=== PATIENT | female | born 1945 | race Caucasian/White ===

== ENCOUNTER → 2016-11-01 | Outpatient (CLI) | payer OTHER, MEDICARE ==
--- NOTE | 2016-11-01 14:38 | DX ---
Chest, Two Views November 01, 2016, at 1247 Hours History: Cough, R05. Previous left breast carcinoma. Comparison: April 2014. Findings: Cardiac silhouette is within normal range. No pneumonia, congestive heart failure, pleura l effusion, or pneumothorax. Clips in the left breast and axillary region. No suspicious pulmonary no dules. Impressions 1. No acute pulmonary disease. 2. Consider CT chest imaging if there is continued clinical concern.
== END ==
LOC: BMCIMAGING 12:49
PROVIDERS: ATTEND Internal Medicine
DX: R05 Cough (principal); Z85.3 Personal history of malignant neoplasm of breast

== ENCOUNTER → 2016-12-10 | Outpatient (CLI) | payer OTHER, MEDICARE | LOC: FIMAGING 13:57 | PROVIDERS: ATTEND Internal Medicine Interventional Cardiology | DX: Z13.6 Encounter for screening for cardiovascular disorders (principal); E78.5 Hyperlipidemia, unspecified ==

== ENCOUNTER → 2017-01-13 | Outpatient (CLI) | payer OTHER, MEDICARE | LOC: BMCIMAGING 13:01 | PROVIDERS: ATTEND Internal Medicine Hematology & Oncology | DX: Z01.818 Encounter for other preprocedural examination (principal); Z85.3 Personal history of malignant neoplasm of breast ==

== ENCOUNTER → 2017-02-13 | Outpatient (CLI) | payer OTHER, MEDICARE ==
[~2017-02-13] MED LIST: GADOBUTROL 10 ML VIAL IVP ONE
[2017-02-13 12:51] LABS: CREATININE 0.9 mg/dL (0.6-1.0); GLOMERULAR FILTRATION RATE > 60
== END ==
LOC: FIMAGING 12:04
PROVIDERS: ATTEND Psychiatry & Neurology Neurology
DX: R20.2 Paresthesia of skin (principal); M50.322 Other cervical disc degeneration at C5-C6 level; M50.323 Other cervical disc degeneration at C6-C7 level
CPT/HCPCS: 72156; A9585

== ENCOUNTER → 2017-06-27 | Outpatient (CLI) | payer OTHER, MEDICARE | LOC: BMCIMAGING 13:20 | PROVIDERS: ATTEND Internal Medicine Hematology & Oncology | DX: Z12.31 Encounter for screening mammogram for malignant neoplasm of breast (principal); Z85.3 Personal history of malignant neoplasm of breast | CPT/HCPCS: G0202 ==

== ENCOUNTER → 2017-07-11 | Outpatient (CLI) | payer OTHER, MEDICARE | LOC: BMCIMAGING 10:42 | PROVIDERS: ATTEND Internal Medicine | DX: Z13.820 Encounter for screening for osteoporosis (principal); M81.0 Age-related osteoporosis without current pathological fracture ==

== ENCOUNTER → 2017-08-11 | Outpatient (CLI) | payer OTHER, MEDICARE | LOC: FIMAGING 11:45 | PROVIDERS: ATTEND Internal Medicine Hematology & Oncology | DX: Z12.39 Encounter for other screening for malignant neoplasm of breast (principal); Z85.3 Personal history of malignant neoplasm of breast | CPT/HCPCS: 0159T; A9585; C8908 ==

== ENCOUNTER → 2017-08-20 | Outpatient (CLI) | payer OTHER, MEDICARE | LOC: BMCIMAGING 12:40 | PROVIDERS: ATTEND Obstetrics & Gynecology | DX: R14.0 Abdominal distension (gaseous) (principal) ==

== ENCOUNTER → 2017-12-02 | Outpatient (CLI) | payer OTHER, MEDICARE | LOC: FIMAGING 13:29 | PROVIDERS: ATTEND Internal Medicine | DX: R10.11 Right upper quadrant pain (principal); R11.0 Nausea ==

== ENCOUNTER → 2017-12-08 | Outpatient (CLI) | payer OTHER, MEDICARE | LOC: FIMAGING 08:15 | PROVIDERS: ATTEND Internal Medicine | DX: K44.9 Diaphragmatic hernia without obstruction or gangrene (principal); K21.9 Gastro-esophageal reflux disease without esophagitis; K59.00 Constipation, unspecified ==

== ENCOUNTER → 2018-08-31 | Outpatient (CLI) | payer OTHER, MEDICARE | LOC: FIMAGING 12:06 | DX: C50.112 Malignant neoplasm of central portion of left female breast (principal); Z98.82 Breast implant status; Z53.8 Procedure and treatment not carried out for other reasons | CPT/HCPCS: A9585 ==

== ENCOUNTER → 2019-02-22 | Outpatient (CLI) | payer OTHER, MEDICARE | LOC: FIMAGING 14:05 | PROVIDERS: ATTEND Internal Medicine | DX: Z12.31 Encounter for screening mammogram for malignant neoplasm of breast (principal); Z85.3 Personal history of malignant neoplasm of breast ==

== ENCOUNTER → 2019-04-22 | Outpatient (CLI) | payer OTHER, MEDICARE | LOC: BMCIMAGING 14:50 ==